=== PATIENT | female | born 1995 | race Caucasian/White ===

== ENCOUNTER → 2017-05-16 | Outpatient (CLI) | payer MEDICAID ==
[~2017-05-16] MED LIST: CLARITIN 10MG T10 MG PO; FERROUS SULFAT325 M2 PO; PRENATAL PLUS1 TA1 PO
--- NOTE | 2017-05-16 12:47 | RADIOLOGY REPORT PS360 ---
US BIOPHYSICAL PROFILE INDICATION: LARGE GESTATIONAL AGE. TECHNIQUE: ultrasound transabdominal scanning/ MW COMPARISON: Ultrasound complete 01/08/2017 FINDINGS Single viable intrauterine gestation. Cephalic position. The cervix appears satisfactory. Long, closed and measuring 2.69 centimeter in length. Complete survey performed and was unremarkable on the submitted images as in PACS.No discrete anomalies identified on survey imaging by technologist Active fetus. Three-vessel cord with satisfactory umbilical cord insertion. . Survey of brain & ventricles. Face and neck survey unremarkable. Diaphragm & views chest unremarkable. abdomen: Both kidneys noted & unremarkable. Stomach noted & satisfactory. spine: Survey of the spine satisfactory with no anomalies identified nor imaged Both arms and legs noted. Amniotic fluid.-Adequate. Maternal adnexa -no significant findings. measurements:. Average ultrasound age 39 weeks 1 day. Gestational age 38 weeks 2 days. BPD = 9.45 cm equaling 38 weeks 4 days OFD = 11.84 cm HC = 33.65 cm equaling 38 weeks 4 days AC = 36.90 cm equaling 40 weeks and 6 days FL = 7.45 cm equaling 38 weeks 1 day Heart rate = 136 BPM. The umbilical artery peak systolic velocity is 39.7 cm/s, end-diastolic velocity is 17.3 cm/s. The RI is 0.56 and the S/D is 2.3 IMPRESSION: Single viable intrauterine gestation in cephalic position currently. 39 weeks 1 dayaverage ultrasound age with today's measurements Anterior placenta. Active fetus. No discrete abnormalities on the ultrasound survey. The biophysical profile was 8 out of 8, the estimated weight is 8 lbs. 8 oz. The abdominal fluid conference and estimated weight are both at the +2 standard deviation.
== END ==
LOC: RAD 08:48
DX: O36.63X1 Maternal care for excessive fetal growth, third trimester, fetus 1 (principal)

== ENCOUNTER 2017-05-23 22:13 | Outpatient (CLI) | payer MEDICAID ==
[~2017-05-23] VITALS: Ht 165.1 cm; Wt 121.1 kg
[2017-05-23 22:39] VITALS: BP 159/90
[2017-05-23 23:23] LABS: URINE BILIRUBIN - DIPSTICK NEGATIVE (NEG); URINE BLOOD NEGATIVE (NEG)
[2017-05-23 23:26] LABS: URINE SQUAMOUS CELLS 20-50 #/hpf (0-5)
[2017-05-27] MEDS ORDERED: PRENATAL PLUS1 TA1 PO (05:56)
[2017-05-27] MEDS ORDERED: CLARITIN 10MG T10 MG PO (05:57)
[2017-05-27] MEDS ORDERED: FERROUS SULFAT325 M2 PO (05:58)
[2017-05-30] MEDS ORDERED: PERCOCET 5/3251 EACH PO (09:05)
[2017-05-30] MEDS ORDERED: MOTRIN 400MG.400 MG PO (09:05)
== END 2017-05-24 00:13 | disposition home or self-care (01) ==
LOC: OBOUT 22:13 → OB 22:13 → OBOUT 05-24 00:13
PROVIDERS: Obstetrics & Gynecology
DX: O60.03 Preterm labor without delivery, third trimester (principal); Z3A.39 39 weeks gestation of pregnancy